=== PATIENT | female | born 1995 | race Caucasian/White ===

== ENCOUNTER → 2020-05-27 | Outpatient (CLI) | payer OTHER ==
--- NOTE | 2020-05-27 08:48 | RAD ---
EXAM: Right breast sonogram. HISTORY: 25-year-old female presents with a palpable right breast lump. TECHNIQUE: Sonographic imaging of the right breast targeted to sites of concern was performed. COMPARISON: None. FINDINGS: There is a circumscribed hypoechoic lesion with internal echoes at the 12:00 position 5 cm from the nipple measuring 10 mm, corresponding with the site of palpable concern. This appears to dem onstrate posterior through transmission, favoring a cystic etiology. However, there is a prominent ve ssel or blood flow within a solid lesion component along the superficial aspect of the lesion. There is heterogeneous dense surrounding breast parenchyma. There is no suspicious axillary lesion. IMPRESSION: 1. 10 mm circumscribed hypoechoic lesion at the 12:00 position 5 cm from the nipple, corresponding wi th the site of palpable concern. The sonographic appearance suggests a complicated cyst. However, the re may be a peripheral solid vascular lesion component. Sonographic guided aspiration or core biopsy is recommended for definitive diagnosis. 2. BI-RADS Category 4: Suspicious abnormality. Biopsy is recommended. These findings and recommendations were discussed with the patient and communicated to Braden in the [facility] referring physician office at 0830 hours on 05/27/2020. Electronically signed by: Priya Luna MD (05/27/2020 8:45 AM) [id number]
== END ==
LOC: US 09:50
PROVIDERS: ATTEND Obstetrics & Gynecology
DX: N63.10 Unspecified lump in the right breast, unspecified quadrant (principal)
CPT/HCPCS: 76641

== ENCOUNTER → 2020-06-23 | Day surgery (SDC) | payer OTHER ==
[~2020-06-23] VITALS: Ht 165.1 cm; Wt 63.0 kg
[~2020-06-23] MED LIST: ALBU2.5V8 INH; CETI10TA74 PO; HYDROmorphone 2 MG/ML VIAL IVP PRN; IV RINGERS,LACTATED 1000ML 1,000 ML IV SCH; METHYLENE BLUE 0.5% 10ml AMPULE. ONE; MORPHINE SULFATE 2 MG/ML VIAL. IVP PRN; PROCHLORPERAZINE 10 MG/2 ML VIAL. IVP PRN; birth control PO; ceFAZolin SODIUM IV Push 1 GM VIAL. IVP PRN; fentaNYL PF VIAL 100 MCG/2 ML VIAL IVP PRN
[2020-06-23 07:24] VITALS: BP 134/98
[2020-06-23 07:36] LABS: BASO % 1 % (0-3); EOS # 0.2 x10^3/uL (0.0-0.7); EOS % 4 % (0-3); HEMATOCRIT 41.8 % (36.0-47.0); HEMOGLOBIN 14.2 g/dL (12.0-15.5); LYMPH # 1.4 x10^3/uL (1.0-4.8); LYMPH % 27 % (24-48); MEAN CORPUSCULAR HEMOGLOBIN 31 pg (25-35); MEAN CORPUSCULAR HGB CONC 34 g/dL (31-37); MEAN CORPUSCULAR VOLUME 92 fL (79-100); MONO # 0.4 x10^3/uL (0.0-1.1); MONO % 7 % (0-9); NEUT # 3.3 x10^3/uL (1.8-7.7); NEUT % 61 % (31-73); PLATELET COUNT 207 x10^3/uL (140-400); RED BLOOD COUNT 4.57 x10^6/uL (3.50-5.40); RED CELL DISTRIBUTION WIDTH 12.5 % (11.5-14.5); WHITE BLOOD COUNT 5.3 x10^3/uL (4.0-11.0)
[2020-06-23 07:48] LABS: CALCIUM 8.8 mg/dL (8.5-10.1); CREATININE 0.9 mg/dL (0.6-1.0); GFR 77.6; POTASSIUM 4.1 mmol/L (3.5-5.1)
--- NOTE | 2020-06-23 10:11 | PDOC ---
SURGICAL PROGRESS NOTE DATE: 06/23/20 TIME: 10:08 SURGERY CANCELLED PER RADIOLOGIST. NEEDLE CORE BX DONE. Vital Signs Vital Signs Date Time Temp Pulse Resp B/P (MAP) Pulse Ox O2 Delivery O2 Flow Rate FiO2 06/23/20 07:24 98.6 80 18 134/98 96 Room Air 98.6 Labs Laboratory Tests Test 06/23/20 06:22 06/23/20 07:22 Bedside Urine HCG, Qualitative Hcg negative (Negative) White Blood Count 5.3 x10^3/uL (4.0-11.0) Red Blood Count 4.57 x10^6/uL (3.50-5.40) Hemoglobin 14.2 g/dL (12.0-15.5) Hematocrit 41.8 % (36.0-47.0) Mean Corpuscular Volume 92 fL (79-100) Mean Corpuscular Hemoglobin 31 pg (25-35) Mean Corpuscular Hemoglobin Concent 34 g/dL (31-37) Red Cell Distribution Width 12.5 % (11.5-14.5) Platelet Count 207 x10^3/uL (140-400) Neutrophils (%) (Auto) 61 % (31-73) Lymphocytes (%) (Auto) 27 % (24-48) Monocytes (%) (Auto) 7 % (0-9) Eosinophils (%) (Auto) 4 % (0-3) Basophils (%) (Auto) 1 % (0-3) Neutrophils # (Auto) 3.3 x10^3/uL (1.8-7.7) Lymphocytes # (Auto) 1.4 x10^3/uL (1.0-4.8) Monocytes # (Auto) 0.4 x10^3/uL (0.0-1.1) Eosinophils # (Auto) 0.2 x10^3/uL (0.0-0.7) Basophils # (Auto) 0.0 x10^3/uL (0.0-0.2) Sodium Level 141 mmol/L (136-145) Potassium Level 4.1 mmol/L (3.5-5.1) Chloride Level 105 mmol/L (98-107) Carbon Dioxide Level 27 mmol/L (21-32) Anion Gap 9 (6-14) Blood Urea Nitrogen 16 mg/dL (7-20) Creatinine 0.9 mg/dL (0.6-1.0) Estimated GFR (Cockcroft-Gault) 77.6 Glucose Level 97 mg/dL (70-99) Calcium Level 8.8 mg/dL (8.5-10.1) Laboratory Tests Test 06/23/20 06:22 06/23/20 07:22 Bedside Urine HCG, Qualitative Hcg negative (Negative) White Blood Count 5.3 x10^3/uL (4.0-11.0) Red Blood Count 4.57 x10^6/uL (3.50-5.40) Hemoglobin 14.2 g/dL (12.0-15.5) Hematocrit 41.8 % (36.0-47.0) Mean Corpuscular Volume 92 fL (79-100) Mean Corpuscular Hemoglobin 31 pg (25-35) Mean Corpuscular Hemoglobin Concent 34 g/dL (31-37) Red Cell Distribution Width 12.5 % (11.5-14.5) Platelet Count 207 x10^3/uL (140-400) Neutrophils (%) (Auto) 61 % (31-73) Lymphocytes (%) (Auto) 27 % (24-48) Monocytes (%) (Auto) 7 % (0-9) Eosinophils (%) (Auto) 4 % (0-3) Basophils (%) (Auto) 1 % (0-3) Neutrophils # (Auto) 3.3 x10^3/uL (1.8-7.7) Lymphocytes # (Auto) 1.4 x10^3/uL (1.0-4.8) Monocytes # (Auto) 0.4 x10^3/uL (0.0-1.1) Eosinophils # (Auto) 0.2 x10^3/uL (0.0-0.7) Basophils # (Auto) 0.0 x10^3/uL (0.0-0.2) Sodium Level 141 mmol/L (136-145) Potassium Level 4.1 mmol/L (3.5-5.1) Chloride Level 105 mmol/L (98-107) Carbon Dioxide Level 27 mmol/L (21-32) Anion Gap 9 (6-14) Blood Urea Nitrogen 16 mg/dL (7-20) Creatinine 0.9 mg/dL (0.6-1.0) Estimated GFR (Cockcroft-Gault) 77.6 Glucose Level 97 mg/dL (70-99) Calcium Level 8.8 mg/dL (8.5-10.1) Justicifation of Admission Dx: Justifications for Admission: Justification of Admission Dx: Yes BANDAR FOSS MD June 23, 2020 10:11
--- NOTE | 2020-06-23 10:13 | RAD ---
EXAM: Sonographic guided right breast biopsy; right breast biopsy clip placement; right breast postbi opsy mammogram. HISTORY: 25-year-old female presents for sonographic guided biopsy of a nodule within the right breas t demonstrated on a sonogram performed 05/27/2020. The patient was initially scheduled for needle-wire localization and lesion excision. However, given significant interval decrease in the size of the no dule compared to the prior study, the option to obtain short-term follow-up or sonographic guided bio psy was discussed with the patient. The patient preferred to proceed with sonographic guided biopsy a nd defer surgery at this time. TECHNIQUE: The risks of the procedure were discussed with the patient and written and verbal consent was obtained. A timeout was performed. Sonographic imaging of the right breast was performed, demonst rating a 5 mm nodule at the 12:00 position 5 cm from the nipple, previously measuring 10 mm. The skin in this location was sterilely prepped, draped and infiltrated with 1 percent lidocaine. Multiple co re samples were obtained through the lesion of concern with sonographic guidance. A biopsy clip was a dvanced into the biopsy bed. No discrete residual lesion was seen following biopsy. Manual compressio n was maintained until hemostasis achieved. Sterile measures placed. Postbiopsy mammogram demonstrate s the biopsy clip in expected position. The patient tolerated the procedure without complication. IMPRESSION: Successful sonographic guided biopsy of a 5 mm nodule at the 12:00 position of the right breast and biopsy clip placement. There is no convincing residual lesion of concern within the biopsy bed following biopsy. An addendum to this report will be submitted when pathology results are availa ble. Electronically signed by: Priya Luna MD (06/23/2020 10:11 AM) [id number]
--- NOTE | 2020-06-23 10:17 | DISCH ---
DISCHARGE INSTRUCTIONS Condition on Discharge Condition on Discharge: Stable Activity After Discharge Activity Instructions for Disc: No restrictions Diet after Discharge Additional Diet Restrictions: normal Follow-Up Follow up with: make appt to see Dr. Foss 4 weeks Treatment/Equipment after DC Adaptive Equipment Issued: None BANDAR FOSS MD June 23, 2020 10:17
--- NOTE | 2020-06-24 02:09 | HP ---
ADMIT DATE: 06/23/2020 HISTORY OF PRESENT ILLNESS: The patient was referred by Dr. Easton because of her right breast mass, apparently has been there for a few months and she has noticed it and was concerned. She went and had a sonogram, which showed a cyst of the right breast, which was complicated and biopsy was suggested. The patient has no symptoms. PAST MEDICAL HISTORY: Past medical history shows no surgery. Her eyes, nose, and throat are grossly without symptoms and she has no heart trouble, high blood pressure, cancer, TB, or asthma. ALLERGIES: No allergies. MEDICATIONS: She does have asthma, for which she takes inhalers from time to time. FAMILY HISTORY: Noncontributory. SOCIAL HISTORY: Shows she does not drink, use illicit drugs or smoke. PHYSICAL EXAMINATION: GENERAL: Shows an alert female in no acute distress. HEENT: Head, eyes, ears, nose and throat are grossly normal. CHEST: Clear to auscultation bilaterally. BREASTS: Examination of the left breast and both axillary areas was negative. The right breast at about 12 o'clock position, there was a thickened area, but no discrete mass was noted. She states it comes off and goes down at times. At this point, there is a thickening area there, not certain of what it could be. No nipple discharge and otherwise the breasts were normal. ABDOMEN: Negative. EXTREMITIES: Grossly normal. IMPRESSION: Right breast mass. PLAN: We will plan to biopsy. It should be known that she has no other illnesses to her knowledge. ANUSHA/YONY/JENIFER DR: Jose De Jesus TID: [id number]
--- NOTE | 2020-06-24 14:22 | PATHOLOGY ---
[facility] Accession Number: [id number] . 01 Material submitted: . breast - RIGHT BREAST MASS 12 OCLOCK 5CM FROM NIPPLE 0.97CM. Modifiers: right, 12:00, 5CM FROM NIPPLE . 01 Clinical history: . RIGHT BREAST MASS RIGHT BREAST BIOPSY OBTAINED: 08 IN FORMALIN: 0842 . 02 Diagnosis: Breast tissue, right breast mass 12:00 needle biopsies: - Stromal fibrosis with well circumscribed focus of chronic and xanthomatous inflammation. See comment. (JPM:aguila; 06/24/2020) QMS 06/24/2020 1106 Local . 02 Comment: Sections of the right breast mass at 12:00 needle biopsy show stromal fibrosis with a well circumscribed nodular focus of inflammation. The inflammatory infiltrate consists of numerous foamy histiocytes with scattered admixed mature lymphocytes, plasma cells, and occasional neutrophils. I considered the possibility of Rosai-Naif disease, but the foamy histiocytes do not show any convincing evidence of lymphophagocytosis. (JPM:aguila; 06/24/2020) . 02 Electronically signed: . Malachi Del Rio MD, Pathologist NPI- [id number] . 01 Gross description: . The specimen is received in formalin, labeled "Kamila Jackson, right breast 12:00 5 cm from nipple". Received are three needle cores of fibrofatty tissue measuring 2.0 x 0.6 x 0.2 cm in aggregate dimensions. The specimen is submitted entirely in cassettes A1 through A3. The cold ischemic time is 2 minutes. The total formalin fixation time is 13 hours and 8 minutes. (CAA; 06/23/2020) QAC/QAC 06/23/2020 1530 Local . 02 Pathologist provided ICD-10: N60.31, N61.0 . 02 CPT . 384472 Specimen Comment: A courtesy copy of this report has been sent to [phone], [phone] Specimen Comment: [id number] Specimen Comment: Report sent to / DR FOSS Specimen Comment: A duplicate report has been generated due to demographic updates. Performed at: 01 [facility] [address] [facility] [address], [place] [id number] MD Austyn Salcido MD Phone: [phone] Performed at: 02 [facility] [address] [place], [place] [id number] MD Malachi Del Rio MD Phone: [phone]
== END | disposition home or self-care (01) ==
LOC: SURG 06:51
PROVIDERS: ATTEND Specialist
DX: N63.12 Unspecified lump in the right breast, upper inner quadrant (principal); R92.8 Other abnormal and inconclusive findings on diagnostic imaging of breast; J45.909 Unspecified asthma, uncomplicated; F41.9 Anxiety disorder, unspecified; F32.9 Major depressive disorder, single episode, unspecified; Z79.899 Other long term (current) drug therapy; Z98.890 Other specified postprocedural states; Z20.822 Contact with and (suspected) exposure to COVID-19
CPT/HCPCS: 19083; 36415; 77065; 80048; 81025; 85025; A4648; Q9968; U0003; U0005; 76942; 88305; J0690

== ENCOUNTER → 2020-11-27 | Outpatient (CLI) | payer OTHER ==
[2020-06-23 07:24] VITALS: BP 134/98
[~2020-11-27] MED LIST changes: -HYDROmorphone 2 MG/ML VIAL IVP PRN; -IV RINGERS,LACTATED 1000ML 1,000 ML IV SCH; -METHYLENE BLUE 0.5% 10ml AMPULE. ONE; -MORPHINE SULFATE 2 MG/ML VIAL. IVP PRN; -PROCHLORPERAZINE 10 MG/2 ML VIAL. IVP PRN; -ceFAZolin SODIUM IV Push 1 GM VIAL. IVP PRN; -fentaNYL PF VIAL 100 MCG/2 ML VIAL IVP PRN
--- NOTE | 2020-11-27 14:04 | RAD ---
US BREAST RT History:Reason: PALPABLE LUMP / Spl. Instructions: / History: Patient states she no longer feels the palpable right axillary abnormality. Comparison: None Technique: Sonographic examination of the right axilla was performed and multiple static images were obtained. Findings: No mass or fluid collection within the region of the patient's palpable concern in the right axilla. No pathologic lymphadenopathy. Impression: 1. No ultrasound evidence of abnormality within the region of the patient's palpable concern in the right axilla. Recommend continued clinical follow-up and imaging follow-up if indicated. BI-RADS Category 2: Benign. Electronically signed by: Juan Alberto Servin DO (11/27/2020 2:02 PM) [id number]
== END ==
LOC: US 14:53
PROVIDERS: ATTEND Obstetrics & Gynecology
DX: N60.01 Solitary cyst of right breast (principal); N93.9 Abnormal uterine and vaginal bleeding, unspecified
CPT/HCPCS: 76641